=== PATIENT | female | born 1935 | race Caucasian/White ===

== ENCOUNTER 2022-09-19 05:10 | Observation (INO) | payer MEDICARE ==
[2022-09-19 05:41] VITALS: BMI 29.2
[2022-09-19] MEDS ORDERED: Loperamide HCl 2 MG CAP PO PRN (06:17)
[2022-09-19] MEDS ORDERED: HYDROcodone/Acetaminophen 10/325 mg Tablet PO PRN (06:17)
[2022-09-19] MEDS ORDERED: Polyethylene Glycol 3350 17 GM Packet PO PRN (06:17)
[2022-09-19] MEDS ORDERED: Simethicone Chewable 80 MG TAB PO PRN (06:23)
[2022-09-19] MEDS ORDERED: Acetaminophen 325 MG TAB PO PRN (06:25)
[2022-09-19] MEDS ORDERED: Artificial Tear Sol 15 ML BOT EA EYE PRN (06:30)
[2022-09-19] MEDS ORDERED: Digoxin 0.125 MG TAB PO SCH (09:00)
[2022-09-19] MEDS ORDERED: Metoprolol Tartrate 25 MG TAB PO SCH (09:00)
[2022-09-19] MEDS: Furosemide 20 MG TAB PO SCH (09:43)
[2022-09-19] MEDS: Potassium Chloride 10 MEQ TAB PO SCH (09:43)
[2022-09-19] MEDS: hydrALAZINE 25 MG TAB PO SCH ×2 (09:43→22:38)
[2022-09-19] MEDS: Spironolactone 25 MG TAB PO SCH (09:43)
[2022-09-19] MEDS: Apixaban 5 MG TAB PO SCH ×2 (09:44→22:39)
[2022-09-19] MEDS: Cyanocobalamin (Vitamin B-12) 1,000 MCG TAB PO SCH (09:44)
[2022-09-19] MEDS: LACTINEX 1 TAB PO SCH (09:44)
[2022-09-19] MEDS: Loratadine 10 MG TAB PO SCH (09:46)
[2022-09-19] MEDS: Metoprolol Tartrate 50 MG TAB PO SCH ×2 (09:46→22:38)
[2022-09-19] MEDS ORDERED: Triamcinolone 0.1% Cream 15 GM TUBE TOP PRN (11:35)
[2022-09-19] MEDS ORDERED: Atorvastatin Calcium 10 MG TAB PO SCH (21:00)
[2022-09-20 05:05] LABS: #Eosinphils 0.1 10x3/uL (0.0-0.5); #Monocytes 0.6 10x3/uL (0.0-1.1); #Neutrophils 3.4 10x3/uL (1.5-8.4); %Basophils 0.4 % (0.0-2.0); %Eosinophils 2.1 % (0.0-6.0); %Lymphocytes 25.4 % (18.0-47.0); %Monocytes 11.1 % (0.0-10.0); %Neutrophils 60.6 % (40.0-75.0); Hemoglobin 12.5 g/dL (12.0-15.5); Mean Corpuscular HGB CONC 33.5 g/dL (32.0-36.0); Mean Corpuscular Volume 89.7 fl (81.6-98.3); Mean Platelet Volume 9.3 fl (7.4-10.4); Platelet Count 195 10x3/uL (150-450); RBC Distribution Width 13.7 % (11.5-14.5); Red Blood Cell (RBC) Count 4.16 10x6/uL (3.90-5.03); White Blood Cell (WBC) Count 5.7 10x3/uL (3.5-10.5)
[2022-09-20 05:19] LABS: Anion Gap 14 mmol/L (10-20); BUN (Urea Nitrogen) 16 mg/dL (9.8-20.1); Calc. Creatinine Clearance 46 mL/min (70-130); Calcium 9.1 mg/dL (7.8-10.44); Carbon Dioxide 23 mmol/L (23-31); Chloride 104 mmol/L (98-107); Estimated GFR 55; Glucose 96 mg/dL (83-110); Sodium 137 mmol/L (136-145)
[2022-09-20] MEDS: Potassium Chloride 10 MEQ TAB PO SCH (07:58)
[2022-09-20] MEDS: Spironolactone 25 MG TAB PO SCH (07:58)
[2022-09-20] MEDS: LACTINEX 1 TAB PO SCH (07:59)
[2022-09-20] MEDS: Metoprolol Tartrate 50 MG TAB PO SCH (07:59)
[2022-09-20] MEDS: Loratadine 10 MG TAB PO SCH (07:59)
[2022-09-20] MEDS: Apixaban 5 MG TAB PO SCH (07:59)
[2022-09-20] MEDS: Furosemide 20 MG TAB PO SCH (07:59)
[2022-09-20] MEDS: hydrALAZINE 25 MG TAB PO SCH (07:59)
[2022-09-20] MEDS: Cyanocobalamin (Vitamin B-12) 1,000 MCG TAB PO SCH (07:59)
[2022-09-20 12:45] VITALS: BP 123/72; TEMP 97.4
[2022-09-20] MEDS ORDERED: Carvedilol 6.25 MG TAB PO SCH (17:00)
[2022-09-21] MEDS ORDERED: Lisinopril 5 MG TAB PO SCH (09:00)
== END 2022-09-20 14:26 | disposition home or self-care (01) ==
LOC: CSHTELE 05:11
PROVIDERS: ADMIT Family Medicine; ATTEND Internal Medicine
DX: I48.11 Longstanding persistent atrial fibrillation (principal); T82.111A Breakdown (mechanical) of cardiac pulse generator (battery), initial encounter; I11.0 Hypertensive heart disease with heart failure; I50.20 Unspecified systolic (congestive) heart failure; E78.5 Hyperlipidemia, unspecified; R00.0 Tachycardia, unspecified; Z98.62 Peripheral vascular angioplasty status; Z90.710 Acquired absence of both cervix and uterus; Z88.8 Allergy status to other drugs, medicaments and biological substances; Z88.0 Allergy status to penicillin; Z79.01 Long term (current) use of anticoagulants; Z79.899 Other long term (current) drug therapy; Z95.0 Presence of cardiac pacemaker; Y83.1 Surgical operation with implant of artificial internal device as the cause of abnormal reaction of the patient, or of later complication, without mention of misadventure at the time of the procedure; R00.2 Palpitations; I50.9 Heart failure, unspecified
CPT/HCPCS: 71045 ×2; 80048; 83605; 83735; 83880; 84484; 85025; 93005; 93306; 99285; G0378 ×2; 36415; 80053; 81003; 81015; 84443; 93010